=== PATIENT | female | born 1960 | race Hispanic/Latino ===

== ENCOUNTER 2024-11-22 20:55 | Emergency (ER) | payer OTHER ==
[~2024-11-22] VITALS: Ht 152.4 cm; Wt 71.7 kg
[~2024-11-22 20:55] MED LIST: ASPI-1012 PO; BUPR-561 PO; CELE200 PO; GABA-531 PO; HYDR-2132 PO; LORA1TAB3 PO; LOSA100T59 PO; OMEP40CA21 PO; PROP20TA7 PO; VENL-63 PO; ZOLP10TA6 PO
--- NOTE | 2024-11-22 21:04 | ERN ---
ED Note History of Present Illness Stated Complaint: FALL Chief Complaint: Mechanical Fall Time Seen by MD: 21:01 Dictation: This is a 64-year-old female who came into the emergency room for evaluation after a mechanical fall from standing and sustained an injury to the head right above the forehead a small laceration with bleeding. She stated transiently she could not remember where she was when she fell. She was walking in the garage and tripped on a tub and fell forward and hit the right side of the head. No other injuries of hands arms or legs. She does not take any blood thinners. No history of any blurred vision diplopia facial asymmetry weakness. She denied drinking any alcohol today Allergies: Coded Allergies: propoxyphene (Unverified Allergy, Mild, NAUSEA/VOMITING, 07/26/17) Home Meds Active Scripts Hydrocodone Bit/Acetaminophen ([place] 5/325Mg) 1 Tab Tablet, 1-2 TAB PO Q6H for pain, #90 TAB Prov:SONIYA ELIZABETH MD 07/27/17 Celecoxib (Celebrex 200Mg Cap) 200 Mg Cap, 200 MG PO DAILY, #15 CAP Prov:SONIYA ELIZABETH MD 07/27/17 Aspirin (ASPIRIN) 325 Mg Tablet, 325 MG PO DAILYDINNER, #20 TAB Prov:SONIYA ELIZABETH MD 07/27/17 Reported Medications Propranolol HCl (Propranolol HCl) 20 Mg Tablet, 20 MG PO BID, TAB 07/22/17 Omeprazole (Omeprazole) 40 Mg Capsule.dr, 40 MG PO DAILY, CAP 07/22/17 Zolpidem Tartrate (Zolpidem Tartrate) 10 Mg Tablet, 10 MG PO HS, TAB 03/17/17 Lorazepam (Lorazepam) 1 Mg Tablet, 1 MG PO TID PRN for PRN, TAB 03/17/17 Bupropion HCl (Bupropion Xl) 300 Mg Tab.er.24h, 300 MG PO DAILY, TAB 03/17/17 Losartan Potassium (Losartan Potassium) 100 Mg Tablet, 100 MG PO DAILY, TAB 03/17/17 Venlafaxine HCl (Venlafaxine HCl ER) 150 Mg Cap.er.24h, 150 MG PO DAILY, CAPSULE. 03/17/17 Gabapentin (Gabapentin) 300 Mg Capsule, 300 MG PO BID, CAP 12/05/14 Past Medical History Family History: Negative Social History: ETOH History: Not Applicable RN Note Reviewed/Agreed w/PFSH: Yes Review of System Dictation Constitutional: Negative for fever,chills, and weight loss Eyes: Negative for injury, pain,redness, and discharge ENT: Negative for injury,pain or swelling Cardiovascular: Negative for chest pain, palpitations, and edema Respiratory: Negative for shortness of breath, cough, and wheezing, Abdomen/GI: Negative for abdominal pain, nausea, vomiting, diarrhea, and constipation Back: Negative for injury and pain : Negative for injury, bleeding and discharge MS/Extremity: Negative for injury and deformity Skin: Negative for rash, and discoloration Neuro: Negative for headache, weakness, numbness, tingling, and seizure Psych: Negative for suicide ideation, homicidal ideation, and hallucinations Initial Vital Sign VS Vital Signs Date Time Temp Pulse Resp B/P (MAP) Pulse Ox O2 Delivery O2 Flow Rate FiO2 11/22/24 20:57 98.1 86 16 207/102 98 Room Air 11/22/24 22:39 0 21 Physical Exam Dictation General: awake, alert, NAD cervical collar in place Head/Face: Normocephalic, 2.2 cm laceration above the right eye along the eyebrow. Linear oozing small amounts of blood Eyes: PERRL, EOMI, vision at baseline ENT: oral cavity clear, TMs clear, no signs of infection Neck: Trachea midline, supple, no nuchal rigidity Cardiovascular: RRR, normal S1/S2, No MRGs, no JVD Respiratory: CTAB, no respiratory distress, No rales or wheezes Abdomen: Soft, non-tender, non-distended, normal bowel sounds, no guarding or rebound. Skin: Warm, dry, normal turgor, no rash MS/Extremity: Pulses equal, no cyanosis, neurovascular intact, FROM Neuro: COAx4, GCS 15, strength 5/5, CN 2-12 intact, normal cerebellar exam, normal gait, Psych: Normal behavior, mood, and affect normal Extremities-trace edema without any palpable cords, Homans sign is negative Results (Laboratory/Radiology) Laboratory/Radiology Laboratory Tests Test 11/22/24 21:20 11/22/24 21:37 White Blood Count 8.2 K/uL (4.8-10.8) Red Blood Count 5.26 MIL/uL (4.00-5.50) Hemoglobin 16.0 g/dL (12.0-16.0) Hematocrit 47.9 % (36-48) Mean Corpuscular Volume 91.1 fL (79-99) Mean Corpuscular Hemoglobin 30.4 pg (27.0-33.0) Mean Corpuscular Hemoglobin Concent 33.4 g/dL (32.0-36.0) Red Cell Distribution Width 12.9 % (11.0-15.5) Platelet Count 292 K/uL (130-400) Mean Platelet Volume 9.8 fL (7.5-10.5) Immature Granulocyte % (Auto) 0.2 % (0-1) Neutrophils (%) (Auto) 67.9 % (40.0-77.0) Lymphocytes (%) (Auto) 21.8 % (21.0-51.0) Monocytes (%) (Auto) 7.8 % (3.0-13.0) Eosinophils (%) (Auto) 1.3 % (0.0-8.0) Basophils (%) (Auto) 1.0 % (0.0-5.0) Neutrophils # (Auto) 5.5 K/uL (1.8-7.7) Lymphocytes # (Auto) 1.8 K/uL (1.0-4.8) Monocytes # (Auto) 0.6 K/uL (0.1-1.0) Eosinophils # (Auto) 0.11 K/uL (0.00-0.70) Basophils # (Auto) 0.08 K/uL (0.00-0.20) Absolute Immature Granulocyte (auto 0.02 K/uL (0-1) Nucleated Red Blood Cells 0.0 % (0.0-0.19) Serum Alcohol < 3 mg/dL (0-10) Sodium Level 139 mmol/L (136-145) Potassium Level 3.4 mmol/L (3.5-5.1) L Chloride Level 102 mmol/L (101-111) Carbon Dioxide Level 29 mmol/L (21-32) Blood Urea Nitrogen 14 mg/dL (7-18) Creatinine 0.8 mg/dL (0.5-1.0) Glomerular Filtration Rate Calc 82 mL/min (>90) Random Glucose 95 mg/dL (70-105) Total Calcium 8.9 mg/dL (8.5-10.1) Labs Reviewed?: Yes CT Scan Comment: REASON: FALL, LACERATION ABOVE RT EYE, ABRASIONS. NO LOC NO THINNERS ORDERING PHYSICIAN: KAELA ALONSO MD PROCEDURE: C SPIN WO - CT CERVICAL SPINE W/O CONTRAST CT CERVICAL SPINE W/O CONTRAST HISTORY: FALL, LACERATION ABOVE RT EYE, ABRASIONS. NO LOC NO THINNERS TECHNIQUE: CT CERVICAL SPINE W/O CONTRAST. Sagittal and coronal images were produced. CT was performed with one or more of the following dose reduction techniques: Automated exposure control, adjustment of the mA and/or kV according to the patient's size, or use of the iterative reconstruction technique. FINDINGS: Evaluation of the cord and discs is limited with CT. No evidence of acute displaced fracture or dislocation. The lateral masses of C1 align with C2. No prevertebral soft tissue swelling. Nonspecific straightening of the curvature likely positional. Multilevel degenerative changes are seen Soft tissues of the neck are grossly within normal limits. This study cannot exclude ligamentous injury. IMPRESSION: No evidence of displaced cervical spine fracture or dislocation. Correlate clinically. Nonspecific straightening of the curvature likely positional. Multilevel degenerative changes are seen DICTATED BY: CONSUELO HONEYCUTT MD DATE: 11/22/242199 ELECTRONICALLY SIGNED BY: CONSUELO HONEYCUTT MD DATE: 11/22/242205 REASON: FALL, LACERATION ABOVE RT EYE, ABRASIONS. NO LOC NO THINNERS ORDERING PHYSICIAN: KAELA ALONSO MD PROCEDURE: HEAD WO - CT HEAD/BRAIN W/O CONTRAST CT HEAD/BRAIN W/O CONTRAST INDICATION: FALL, LACERATION ABOVE RT EYE, ABRASIONS. NO LOC NO THINNERS TECHNIQUE: CT HEAD/BRAIN W/O CONTRAST. CT was performed with one or more of the following dose reduction techniques: Automated exposure control, adjustment of the mA and/or kV according to the patient's size, or use of the iterative reconstruction technique. Comparison: None FINDINGS: The ventricles and extra ventricular CSF spaces are within normal limits. No mass effect, midline shift or herniation. No extra axial collection. No acute intracranial bleed. The visualized paranasal sinuses and mastoid air cells are normally aerated. IMPRESSION: No acute intracranial findings. DICTATED BY: CONSUELO HONEYCUTT MD DATE: 11/22/242200 ELECTRONICALLY SIGNED BY: CONSUELO HONEYCUTT MD DATE: 11/22/242205 REASON: FALL, LACERATION ABOVE RT EYE, ABRASIONS. NO LOC NO THINNERS ORDERING PHYSICIAN: KAELA ALONSO MD [facility]O CONTRAST CT MAXILLOFACIAL W/O CONTRAST HISTORY: FALL, LACERATION ABOVE RT EYE, ABRASIONS. NO LOC NO THINNERS TECHNIQUE: Noncontrast CT maxillofacial was performed. Sagittal and coronal reformats were performed. CT was performed with one or more of the following dose reduction techniques: Automated exposure control, adjustment of the mA and/or kV according to the patient's size, or use of the iterative reconstruction technique. FINDINGS: Right periorbital soft tissue swelling is seen. No displaced facial bone fracture is identified. Visualized paranasal sinuses are normally aerated. Mastoid air cells are clear. Study is not adequate to evaluate brain parenchyma/dura. IMPRESSION: Right periorbital soft tissue swelling. DICTATED BY: CONSUELO HONEYCUTT MD DATE: 11/22/242157 ELECTRONICALLY SIGNED BY: CONSUELO HONEYCUTT MD DATE: 11/22/242201 ED Course ED Course Orders Procedure Category Date Status Time Ct Head/Brain W/O CT 11/22/24 Resulted Contrast 21:05 Ct Cervical Spine W/O CT 11/22/24 Resulted Contrast 21:05 Ct Maxillofacial W/O CT 11/22/24 Resulted Contrast 21:05 Cbc With Differential LAB 11/22/24 Complete 21:09 Urinalysis Profile LAB 11/22/24 Logged 21:09 Alcohol, Blood LAB 11/22/24 Complete 21:09 Morphine 2mg Syg PHA 11/22/24 Complete (Morphine 2mg Syg) 21:30 Basic Metabolic Panel LAB 11/22/24 Complete 21:31 Potassium Bicarb/Cit PHA 11/22/24 Complete Ac 25meq (K-Lyte Ta 22:30 Morphine 2mg Syg PHA 11/22/24 Complete (Morphine 2mg Syg) 22:30 Current Medications Medications (Trade) Dose Ordered Sig/Darrell Route PRN Reason Start Time Stop Time Status Last Admin Dose Admin Morphine Sulfate (morPHINE 2MG SYG) 2 mg ONCE ONCE IVP 11/22/24 21:30 11/22/24 21:31 DC 11/22/24 21:33 Morphine Sulfate (morPHINE 2MG SYG) 2 mg ONCE ONCE IVP 11/22/24 22:30 11/22/24 22:31 DC 11/22/24 22:36 Potassium Bicarbonate (K-Lyte Tablet Eff 25 Meq Tablet.eff) 25 meq ONCE ONCE PO 11/22/24 22:30 11/22/24 22:31 DC 11/22/24 22:36 Vital Signs Date Time Temp Pulse Resp B/P (MAP) Pulse Ox O2 Delivery O2 Flow Rate FiO2 11/22/24 22:39 98.4 78 16 186/98 97 Room Air* 0 21 11/22/24 20:57 98.1 86 16 207/102 98 Room Air We will perform diagnostic labs, advanced imaging and administer medications according to the patient's complaint. Once the results are available, will review and personally interpreted the labs to rule out any acute life- threatening emergency the trach require immediate intervention and treatment. I will then re-evaluate the patient after treatment and diagnostic exams have return to determine whether the patient requires any further testing, can safely be discharged home or need further admission to hospital for additional treatment and evaluation. 10:26 p.m. all the imaging studies were unremarkable for any serious pathology except for some mild periorbital swelling on the right side CBC is with a normal limits BNP 7 showed a potassium of 3.4 BUN and creatinine are 14 and 0.8 ETOH level is less than 3 I updated the patient and her spouse on all the imaging and lab results. The laceration on the right eyebrow area has been thoroughly cleaned and Dermabond was applied with a sterile dressing. Medical Decision Making MDM MDM: Differential diagnosis: Concussion, intracranial bleed, depressed fractures, facial fractures closed head injury Rationale: Tests considered and ordered secondary to shared decision making include: Previous outside records reviewed: Old ER visits. Risk of complication and/or morbidity or mortality of patient management: None Medications-Per medication reconciliation Need for hospitalization: Patient does not meet criteria for hospitalization. Need for emergency major/minor surgery: No There are no social concerns with this patient. Prescription drug management Prescriptions will include symptomatic care Patient's prior external medical records from other ER visits were reviewed by me as indicated. Prior testing and results from previous visits were reviewed. Prior tests were taken into account with medical decision making and resource utilization, independent historian/historians were used to obtain complete medical history. I independently interpreted the test that were performed, results were reviewed by me and considered findings on radiology if ordered. Medical management and examination interpretation discussions were had by me wit h other qualified healthcare professionals as indicated for the patient's care. Procedure Wound Location: face Wound's Depth, Shape: superficial Wound Explored: no foreign body removed Irrigated w/ Saline (ccs): 15 Betadine Prep?: Yes Wound Debrided: minimal Wound Repaired With: Steri-strips, Dermabond Sterile Dressing Applied?: Yes Problem List Problem List: (1) Fall from standing (2) Superficial laceration of face (3) Closed head injury DX & DISP Disposition: Discharge Departure Impression: Primary Impression: Fall from standing Additional Impressions: Superficial laceration of face, Closed head injury Condition: Stable Additional Instructions: Patient and the caregiver have been informed of all the diagnostic tests and the imaging conducted during the today's visit to the emergency room and has verbalized understanding of the results I have personally reviewed and interpreted all diagnostic exams performed here in the ER today as well as the vital signs documented by the nursing staff. The patient is now being discharged to home and should follow up with the primary care physician or the specialist as directed by the ER staff. Follow-up with primary care provider in 1 to 2 days. Take medications as directed here in the emergency room. Okay to continue home medications unless otherwise discussed during your visit in the emergency room today. Return to your nearest emergency room if symptoms worsen or if there is no improvement. Call 911 if you need immediate assistance. Take Tylenol or Motrin [id number] as needed and if no contraindications are present. Increase oral hydration. A wound culture or urine culture was ordered here in the emergency room department please follow-up with primary care provider and advise them to get repeat ports from our facility. If you had any Herman wrap/splints that were applied here, please do not remove them until you see your primary care or specialty. Referrals: JD SAUNDERS (PCP) KAELA ALONSO MD Nov 22, 2024 21:03
[2024-11-22 21:26] LABS: BASOPHILS # (AUTO) 0.08 K/uL (0.00-0.20); EOSINOPHILS # (AUTO) 0.11 K/uL (0.00-0.70); EOSINOPHILS % (AUTO) 1.3 % (0.0-8.0); HEMATOCRIT 47.9 % (36-48); IMMATURE GRANULOCYTE ABSOLUTE 0.02 K/uL (0-1); LYMPHOCYTES # (AUTO) 1.8 K/uL (1.0-4.8); LYMPHOCYTES % (AUTO) 21.8 % (21.0-51.0); MEAN CORPUSCULAR HEMOGLOBIN 30.4 pg (27.0-33.0); MEAN CORPUSCULAR HGB CONC 33.4 g/dL (32.0-36.0); MEAN CORPUSCULAR VOLUME 91.1 fL (79-99); MONOCYTES # (AUTO) 0.6 K/uL (0.1-1.0); MONOCYTES % (AUTO) 7.8 % (3.0-13.0); NEUTROPHILS # (AUTO) 5.5 K/uL (1.8-7.7); NEUTROPHILS % (AUTO) 67.9 % (40.0-77.0); PLATELET COUNT (AUTO) 292 K/uL (130-400); RED BLOOD CELL COUNT(AUTO) 5.26 MIL/uL (4.00-5.50); RED CELL DISTRIBUTION WIDTH 12.9 % (11.0-15.5); WHITE BLOOD COUNT (AUTO) 8.2 K/uL (4.8-10.8)
--- NOTE | 2024-11-22 21:27 | NUR ---
WOUND TO R FOREHEAD/EYEBROW CLEANED WITH SKINTEGRITY, STERI STRIPS APPLIED, PATIENT TOLERATED WELL
[2024-11-22] MEDS: morPHINE 2 MG SYG IVP ONE ×2 (21:33→22:36)
--- NOTE | 2024-11-22 21:35 | NUR ---
PATIENT TO CT
--- NOTE | 2024-11-22 21:47 | NUR ---
PATIENT RETURNED FROM CT
[2024-11-22 21:58] LABS: CREATININE 0.8 mg/dL (0.5-1.0); POTASSIUM 3.4 mmol/L (3.5-5.1)
--- NOTE | 2024-11-22 22:02 | HMCIMG ---
CT MAXILLOFACIAL W/O CONTRAST HISTORY: FALL, LACERATION ABOVE RT EYE, ABRASIONS. NO LOC NO THINNERS TECHNIQUE: Noncontrast CT maxillofacial was performed. Sagittal and coronal reformats were performed. CT was performed with one or more of the following dose reduction techniques: Automated exposure control, adjustment of the mA and/or kV according to the patient's size, or use of the iterative reconstruction technique. FINDINGS: Right periorbital soft tissue swelling is seen. No displaced facial bone fracture is identified. Visualized paranasal sinuses are normally aerated. Mastoid air cells are clear. Study is not adequate to evaluate brain parenchyma/dura. IMPRESSION: Right periorbital soft tissue swelling.
--- NOTE | 2024-11-22 22:06 | HMCIMG ---
CT HEAD/BRAIN W/O CONTRAST INDICATION: FALL, LACERATION ABOVE RT EYE, ABRASIONS. NO LOC NO THINNERS TECHNIQUE: CT HEAD/BRAIN W/O CONTRAST. CT was performed with one or more of the following dose reduction techniques: Automated exposure control, adjustment of the mA and/or kV according to the patient's size, or use of the iterative reconstruction technique. Comparison: None FINDINGS: The ventricles and extra ventricular CSF spaces are within normal limits. No mass effect, midline shift or herniation. No extra axial collection. No acute intracranial bleed. The visualized paranasal sinuses and mastoid air cells are normally aerated. IMPRESSION: No acute intracranial findings.
--- NOTE | 2024-11-22 22:06 | HMCIMG ---
CT CERVICAL SPINE W/O CONTRAST HISTORY: FALL, LACERATION ABOVE RT EYE, ABRASIONS. NO LOC NO THINNERS TECHNIQUE: CT CERVICAL SPINE W/O CONTRAST. Sagittal and coronal images were produced. CT was performed with one or more of the following dose reduction techniques: Automated exposure control, adjustment of the mA and/or kV according to the patient's size, or use of the iterative reconstruction technique. FINDINGS: Evaluation of the cord and discs is limited with CT. No evidence of acute displaced fracture or dislocation. The lateral masses of C1 align with C2. No prevertebral soft tissue swelling. Nonspecific straightening of the curvature likely positional. Multilevel degenerative changes are seen Soft tissues of the neck are grossly within normal limits. This study cannot exclude ligamentous injury. IMPRESSION: No evidence of displaced cervical spine fracture or dislocation. Correlate clinically. Nonspecific straightening of the curvature likely positional. Multilevel degenerative changes are seen
[2024-11-22] MEDS: PoTASSium BIcarbonate/CIT AC 25 MEQ TABLET.EFF PO ONE (22:36)
[2024-11-22 22:39] VITALS: BP 186/98; PULSE 78; RESP 16; TEMP 98.4; O2SAT 97
== END 2024-11-22 23:08 | disposition home or self-care (01) ==
LOC: EDH 20:55
DX: S01.111A Laceration without foreign body of right eyelid and periocular area, initial encounter (principal); Z79.1 Long term (current) use of non-steroidal anti-inflammatories (NSAID); Z79.899 Other long term (current) drug therapy; W18.39XA Other fall on same level, initial encounter; Y93.89 Activity, other specified; Y92.89 Other specified places as the place of occurrence of the external cause; Y99.8 Other external cause status
CPT/HCPCS: 99285; 70450; 96374; 80048; 85025; 36415; 72125; 70486; 12011; 96376; J2270 ×2